=== PATIENT | female | born 1980 | race Caucasian/White ===

== ENCOUNTER → 2017-12-13 | Outpatient (CLI) | payer BC ==
[~2017-12-13] MED LIST: ACYC800 PO; CLON.5 PO; CLON1 PO; CYCL10 PO; DOXY100 PO; FAMO20 PO; GLUC500 PO; HYDACE5 PO; IBUP400 PO; IBUP600 PO; LAMI150 PO; LAMO100 PO; MECL25 PO; METR500 PO; MIRT15 PO; NAPR220 PO; OLAN5 PO; OXYACE5T PO; PRED10 PO; QUET200 PO; SUCR1 PO
== END ==
LOC: LAB 10:34
PROVIDERS: Registered Nurse
DX: Z12.4 Encounter for screening for malignant neoplasm of cervix (principal)
CPT/HCPCS: G0123